=== PATIENT | female | born 1960 | race Caucasian/White ===

== ENCOUNTER 2019-07-28 12:00 | Emergency (ER) | payer OTHER ==
[~2019-07-28] VITALS: Wt 79.7 kg
[~2019-07-28 12:00] MED LIST: ACET-141 PO; IBUP-1561 PO
[2019-07-28] MEDS ORDERED: IBUPROFEN 200 MG TAB PO ONE (15:30)
[2019-07-28 15:40] VITALS: BP 120/79; PULSE 68; RESP 20
== END 2019-07-28 15:49 | disposition home or self-care (01) ==
LOC: E/R 12:00 → FTE 15:49
DX: S52.502A Unspecified fracture of the lower end of left radius, initial encounter for closed fracture (principal); W19.XXXA Unspecified fall, initial encounter; Y92.9 Unspecified place or not applicable
CPT/HCPCS: 29125; 73090; 73110; 73130; Z7502; Z7610